=== PATIENT | female | born 1970 | race Two or more races ===

== ENCOUNTER 2017-08-18 17:19 | Emergency (ER) | payer MEDICAID ==
[~2017-08-18] VITALS: Ht 162.6 cm; Wt 77.1 kg
[2017-08-18 17:59] VITALS: BP 142/79
== END 2017-08-18 21:11 | disposition home or self-care (01) ==
LOC: ER 17:30
DX: S90.31XA Contusion of right foot, initial encounter (principal); I10 Essential (primary) hypertension; E78.5 Hyperlipidemia, unspecified; Z90.710 Acquired absence of both cervix and uterus; W20.8XXA Other cause of strike by thrown, projected or falling object, initial encounter; Y93.89 Activity, other specified; Y99.8 Other external cause status; Y92.89 Other specified places as the place of occurrence of the external cause
CPT/HCPCS: 73630

== ENCOUNTER 2021-08-11 22:32 | Emergency (ER) | payer MEDICAID ==
[~2021-08-11] VITALS: Ht 162.6 cm; Wt 68.0 kg
[~2021-08-11 22:32] MED LIST: FLUC200T50 PO
[2021-08-12 01:02] VITALS: BP 147/86
[2021-08-12] MEDS ORDERED: HYDROcodone-ACET 5/325MG TAB PO ONE (01:30)
[2021-08-12] MEDS ORDERED: PERCOT PO (03:31)
== END 2021-08-12 04:20 | disposition home or self-care (01) ==
LOC: ER 22:32
DX: S42.492A Other displaced fracture of lower end of left humerus, initial encounter for closed fracture (principal); R51.9 Headache, unspecified; M25.562 Pain in left knee; M25.572 Pain in left ankle and joints of left foot; R07.81 Pleurodynia; K21.9 Gastro-esophageal reflux disease without esophagitis; I10 Essential (primary) hypertension; E78.5 Hyperlipidemia, unspecified; Z90.710 Acquired absence of both cervix and uterus; Z79.899 Other long term (current) drug therapy; W18.39XA Other fall on same level, initial encounter; Y93.89 Activity, other specified; Y92.89 Other specified places as the place of occurrence of the external cause; Y99.8 Other external cause status
CPT/HCPCS: 29105; 70450; 70486; 71101; 73110; 73562; 73610